=== PATIENT | female | born 1970 | race Native Hawaiian/Other Pacific Islander ===

== ENCOUNTER → 2018-06-22 | Outpatient (CLI) | payer BC ==
--- NOTE | 2018-06-23 07:30 | MM ---
Reason for exam: additional evaluation requested from prior study. Last mammogram was performed 4 years and 2 months ago. History: Patient is postmenopausal. Family history of breast cancer in paternal grandmother and breast cancer in paternal aunt. Benign US biopsy breast VAD LT of the left breast, April 25, 2014. Benign US LT VAD breast biopsy of the left breast, August 15, 2011. Took hormonal contraceptives for 10 years. Physical Findings: Nurse Summary: 1-2cm nodule in the left breast at 1 o'clock (nurse sharla). MG 3D Diag Mammo W/Cad LT CC with magnification and LM with magnification view(s) were taken of the left breast. Prior study comparison: June 07, 2018, mammogram. April 25, 2014, left breast MG diagnostic mammo LT w CAD. March 21, 2014, bilateral MG diagnostic mammo w CAD DAVID. These results were verbally communicated with the patient and result sheet given to the patient on 06/22/18. ASSESSMENT: Incomplete: need additional imaging evaluation, BI-RAD 0 RECOMMENDATION: Ultrasound of the left breast.
--- NOTE | 2018-06-23 07:32 | USB ---
Reason for exam: additional evaluation requested from abnormal screening. History: Patient is postmenopausal. Family history of breast cancer in paternal grandmother and breast cancer in paternal aunt. Benign US biopsy breast VAD LT of the left breast, April 25, 2014. Benign US LT VAD breast biopsy of the left breast, August 15, 2011. Took hormonal contraceptives for 10 years. US Breast LT Left complete breast ultrasound includes all four quadrants, the retroareolar region and axilla. Finding demonstrates a 0.5 x 0.5 x 0.5cm cystic lesion at 1 o'clock, a 1.4 x 1.4 x 1.0cm cystic lesion at 2 o'clock BB and a 0.5 x 0.4 x 0.4cm mixed lesion at 11 o'clock. These results were verbally communicated with the patient and result sheet given to the patient on 06/22/18. ASSESSMENT: Probably benign, BI-RAD 3 RECOMMENDATION: Ultrasound of the left breast in 3 months. (3-6 months)
== END | disposition home or self-care (01) ==
LOC: RADMAMWWP 14:29
PROVIDERS: ATTEND Family Medicine
DX: R92.8 Other abnormal and inconclusive findings on diagnostic imaging of breast (principal); N63.20 Unspecified lump in the left breast, unspecified quadrant
CPT/HCPCS: 77061; 77065